=== PATIENT | male | born 1955 | race Caucasian/White ===

== ENCOUNTER 2017-12-10 08:22 | Outpatient (CLI) | payer OTHER ==
--- NOTE | 2017-12-10 11:02 | MRI ---
FACE MRI WITH AND WITHOUT CONTRAST: HISTORY: Left tongue mass x1 year. Localized swelling and lump. COMPARISON: None. TECHNIQUE: A face MRI is performed with and without intravenous Gadolinium administration. Multisequential, mul tiplanar imaging is performed. FINDINGS: Appropriate T1 marrow signal intensity in the visualized clivus and cervical vertebrae. The visualiz ed brain parenchyma, cervical medullary junction, cervical cord, and upper thoracic cord have normal size and signal intensity. There is moderate central canal stenosis at C3-C4. There is moderate rufus ateral foraminal narrowing. Evaluation is limited and incomplete. The patient has had a previous ce rvical spine MRI. Refer to that exam for further detail. There is a right paracentral disk osteophyte complex at C5-C6. Mild central canal stenosis. Symmetric signal intensity of the submandibular glands and the parotid gland. Bilateral supervisor wet room spaces and carotid spaces have appropriate signal intensity. Arterial flow void s are maintained. In the left tongue base, there is a T1 isointense, avidly enhancing mass, measuring 2.5 cm mediolater al x 3.1 cm anteroposterior x 3.1 cm craniocaudal. This mass abuts the midline fatty raphe of the to ngue and causes rightward deviation. The mass extends into the posterolateral margin of the left ton tae base. Extension beyond the confines of the tongue, into the posterior left sublingual space mehnaz ot be excluded. There is a upper normal left level II node measuring 1 x 1 cm. Evaluation is incomp lete. IMPRESSION: Enhancing mass involving the left tongue base. Neoplasm is favored until proven otherwise. Left lev el II lymph node, incompletely evaluated. Consider PET. POS: [facility]
--- NOTE | 2017-12-10 11:15 | MRI ---
BRAIN MRI WITH AND WITHOUT CONTRAST: HISTORY: Bilateral hearing loss x1 year. COMPARISON: None. TECHNIQUE: A brain MRI is performed with and without intravenous Gadolinium administration. IAC protocol was ut ilized. Multisequential, multiplanar imaging was performed. FINDINGS: The calvarium has a normal T1 marrow signal intensity. Midline brain parenchymal structures are unre markable. There is age appropriate atrophy of the cerebrum. There are scattered T2 and FLAIR white matter hype rintensities, which are nonspecific, but are likely due to chronic small vessel ischemic change. Central arterial flow voids are maintained. Absent restricted diffusion. There is malacic change involving the right cerebellar hemisphere due to remote insult. Additional m alacic change along the posterior vermis is suspected. There is asymmetric fullness at the left aspect of the pituitary gland. On the coronal post contrast images, there appears to be a left pituitary gland mass, measuring at least 9 mm craniocaudal x 1 cm anteroposterior x 7 mm mediolateral. Evaluation is incomplete. There is resultant slight rightward deviation of the pituitary stalk. No significant mass effect upon the optic chiasm or prechiasmatic optic nerves. Left and right Meckel's cave are unremarkable. There is no pathologic enhancement of the brain parenchyma. There is abnormal enhancement along the posterior left oral cavity. Refer to face MRI for further de tail. MRI of the internal auditory canals show symmetric signal intensity of both inner ear structures. No abnormal enhancement or enhancing masses. There is symmetric signal intensity of the seventh and ei ghth cranial nerve complexes. No abnormal enhancement in the internal auditory canal, cisternal segm ent, or root origin zone. There are some vessels adjacent to the left and right foot internal zone, which are nonspecific. The visualized fifth cranial nerves are unremarkable. IMPRESSION: 1. Mass in the posterior left oral cavity, incompletely evaluated. Refer to face MRI for further de tail. 2. 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 An MRI using pituitary g land protocol is recommended. 3. No abnormal enhancement of either seventh/eighth cranial nerve complexes. Of note, there are ronnie e vessels in the left and right costophrenic angle cistern, which are close to the root origin zone o f both seventh/eighth cranial nerves. POS: [facility]
== END 2017-12-10 08:23 | disposition home or self-care (01) ==
LOC: TBSIIMAG 08:22
PROVIDERS: ATTEND Otolaryngology Plastic Surgery within the Head & Neck
DX: H90.3 Sensorineural hearing loss, bilateral (principal); R22.0 Localized swelling, mass and lump, head; H93.13 Tinnitus, bilateral; K14.9 Disease of tongue, unspecified
CPT/HCPCS: 70543; 70553; 82565

== ENCOUNTER 2018-01-02 10:01 | Outpatient (CLI) | payer OTHER ==
--- NOTE | 2018-01-02 14:26 | PET ---
PET CT: HISTORY: Head/neck cancer (tongue). Exam requested for initial staging. TECHNIQUE: PET scanning with CT attenuation correction was performed from the vertex through the proximal thighs following the intravenous administration of 11 mCi [id number] in the right antecubital fossa. Imaging w as performed after an uptake interval of 72 minutes. COMPARISON: None. CORRELATION: MRI face of 12/10/17. FINDINGS: There is hypermetabolic activity in the mass of the left tongue base with a SUV of 19. No farhad hypermetabolism is seen in the neck, chest, axillae, abdomen, or pelvis. No hypermetabolic p ulmonary nodules, liver, adrenal, or skeletal lesions are identified. There is physiologic activity in the GI and tracts, brain, and heart. The CT scan used for attenuation correction demonstrates no evidence of pleural effusions or ascites. There is a cyst in the liver. The enlarged left Level II lymph node noted on the MRI does not demonstrate abnormal FDG localization . 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 POS: [facility]
== END 2018-01-02 10:02 | disposition home or self-care (01) ==
LOC: PET 10:01
PROVIDERS: ATTEND Internal Medicine Hematology & Oncology
DX: C76.0 Malignant neoplasm of head, face and neck (principal); C02.9 Malignant neoplasm of tongue, unspecified; C01 Malignant neoplasm of base of tongue
CPT/HCPCS: 78815; A9552

== ENCOUNTER 2018-06-02 11:12 | Outpatient (CLI) | payer OTHER ==
--- NOTE | 2018-06-02 14:28 | PET ---
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 COMPARISON: 01/02/2018. CORRELATION: Brain MRI 12/10/2017 and neck MRI 12/10/2017. TECHNIQUE: PET can with CT attenuation correction was performed from the skull vertex to the proximal thigh foll owing the intravenous administration of 10.5 mCi of [id number]. HEAD AND NECK: There is increased FDG avidity involving the left aspect of the sella, with a maximum SUV of 6.7. Hy permetabolic activity corresponds to an adenoma identified on previous brain MRI. No additional abno rmal FDG localization in the head and neck. Specifically, there is no abnormal FDG localization in t he head and neck. Specifically, there is no abnormal FDG localization at the level of the left lung base. CHEST: No abnormal FDG localization. ABDOMEN AND PELVIS: No abnormal FDG localization. CT used for attenuation correction demonstrates a hepatic cyst. OSSEOUS STRUCTURES: No abnormal FDG localization. IMPRESSION: 1. Interval resolution of previously noted fluorodeoxyglucose avidity of the left tongue base. No e vidence of hypermetabolic lymph nodes within the neck. 2. Increased fluorodeoxyglucose avidity in the left aspect of the sella, corresponding to a macroade noma described on brain MRI from December 2017. POS: [facility]
== END 2018-06-02 11:13 | disposition home or self-care (01) ==
LOC: PET 11:12
PROVIDERS: ATTEND Internal Medicine Hematology & Oncology
DX: C76.0 Malignant neoplasm of head, face and neck (principal)
CPT/HCPCS: 36415; 78815; 80053; 82248; 83615; 84100; 84550; A9552

== ENCOUNTER 2018-06-29 14:48 | Outpatient (CLI) | payer OTHER ==
[~2018-06-29 14:48] MED LIST: Gadobenate Dimeglumine 529 MG/1 ML (20ML VIAL) ONE
--- NOTE | 2018-06-29 16:24 | MRI ---
MRI BRAIN WITH AND WITHOUT CONTRAST: Date: 06/29/18 COMPARISON: 12/10/17. CLINICAL HISTORY: Pituitary neoplasm, follow-up. FINDINGS: Stable asymmetry with heterogeneous enhancement involves the left aspect of the sella, with a rounded mass-like component again demonstrated, diameter of which measures up to 1.0 cm, grossly stable in v olume. Pituitary infundibulum is of normal caliber and intensity with a minimal rightward deviation, stable. There are no interval acute intracranial abnormalities. There is evidence to indicate minimal chronic ischemic disease. Ventricular system is stable. No enhancing intra-axial mass. [place] intraocular le nses are absent. There is scattered paranasal sinus opacification and bilateral mastoid effusions, le ft greater than right. IMPRESSION: Grossly stable, left asymmetric prominence and heterogeneous enhancement of the sella, approximately 1.0 cm, which again may relate to pituitary macroadenoma. Continued 6 month follow-up would prove use ful for size stability documentation. POS: [facility]
== END 2018-06-29 14:49 | disposition home or self-care (01) ==
LOC: TBSIIMAG 14:48
PROVIDERS: ATTEND Neurological Surgery
DX: D49.7 Neoplasm of unspecified behavior of endocrine glands and other parts of nervous system (principal)
CPT/HCPCS: 70553; A9577

== ENCOUNTER 2019-05-10 09:38 | Outpatient (CLI) | payer OTHER ==
--- NOTE | 2019-05-10 16:18 | MRI ---
MRI brain and sella with and without contrast: DATE: 05/10/2019 HISTORY: 64-year-old male with pituitary neoplasm ICD-10: D49.7 COMPARISON: 06/29/2018 FINDINGS: Again noted is the solid mass in the left side of the sella turcica measuring approximately 11 x 7 x 9 mm. Allowing for slight differences in cursor placement, there is no significant interval change. It mildly superiorly bulges the diaphragma sella to the left of midline. No compression of the optic chiasm. Focal atrophy of the right cerebellar hemisphere. Scattered punctate T2 hyperintensities in the bilat eral cerebral white matter. No obstructive hydrocephalus, mass effect, midline shift, or extra-axial fluid collection. No interval change overall. No restricted diffusion. No abnormal intra- axial enhancement. IMPRESSION: 1. Small left-sided pituitary macroadenoma. 2. Atrophy of right cerebellar hemisphere from prior insult. 3. No interval change overall.
== END 2019-05-10 09:39 | disposition home or self-care (01) ==
LOC: TBSIIMAG 09:38
PROVIDERS: ATTEND Internal Medicine Hematology & Oncology
DX: D49.7 Neoplasm of unspecified behavior of endocrine glands and other parts of nervous system (principal); D35.2 Benign neoplasm of pituitary gland; C02.8 Malignant neoplasm of overlapping sites of tongue; G31.9 Degenerative disease of nervous system, unspecified
CPT/HCPCS: 70553; 82565

== ENCOUNTER 2020-05-15 09:21 | Outpatient (CLI) | payer MEDICARE ==
--- NOTE | 2020-05-15 13:45 | MRI ---
MRI BRAIN WITH AND WITHOUT CONTRAST FOLLOWING PITUITARY PROTOCOL WITH DYNAMIC IMAGING OF THE SELLA [facility]: Date: 05/15/2020 INDICATION: Follow-up pituitary adenoma. COMPARISON: MRI brain and pituitary 05/10/2019. FINDINGS: Cortical atrophy is again noted and stable. Mild ischemic white matter changes appear stable. The mass seen on the sella turcica on the left involving the pituitary gland is again noted. This mas s shows no significant change in size or appearance when pituitary images are compared. It continues to measure approximately 11.0 x 8.0 x 9.0 mm. No abnormal enhancement. Volume loss in the right cerebellum is again noted and stable. IMPRESSION: Stable pituitary adenoma. POS: [facility]
== END 2020-05-15 09:22 | disposition home or self-care (01) ==
LOC: TBSIIMAG 09:21
PROVIDERS: ATTEND Internal Medicine Hematology & Oncology
DX: C02.8 Malignant neoplasm of overlapping sites of tongue (principal); D35.2 Benign neoplasm of pituitary gland
CPT/HCPCS: 70553; 82565